=== PATIENT | female | born 1990 | race Caucasian/White ===

== ENCOUNTER 2016-09-13 19:48 | Inpatient (IN) | payer BC, OTHER ==
[~2016-09-13] VITALS: Ht 157.5 cm; Wt 54.4 kg
--- NOTE | 2016-09-13 20:45 | NUR ---
Pre-admission assessment Patient is a 26-year old, female, seen at intake, AAOx4, no SOB and no anxiety noted at this time. Discussed with patient admission policies of the unit. Patient is coherent and able to respond to questions appropriately. Patient reported that she is originally from [place] but has recently moved to [place], [place] last 06/2016. Pt is ambulatory with steady gait. Pt reports no known allergies and no history of seizure. Patient reports using these substance daily: Heroin 1 gm IV daily, on and off, for 1 year, last use was 09/13/2016 at 0900 and Marijuana 1 ball daily on average via smoking daily for 5 years. Last use was 09/13/2016 at 1300. Pt mentioned and she takes no home meds, except for Melatonin intermittently. Vital signs taken and as follows: ZN=109/85, P=93, O2 sat on RA=98%, RR=20, T=98.4. Pt verbalized instructions and teachings regarding disposal of narcotic and other controlled home meds, unit protocols such as taking of vital signs Q4H and handling and disposal of contraband.
[2016-09-13] MEDS ORDERED: ACETAMINOPHEN 325 MG TABLET PO PRN (21:00)
[2016-09-13] MEDS ORDERED: MAGNESIUM HYDROXIDE 30 ML LIQUID UDC PO PRN (21:00)
[2016-09-13] MEDS ORDERED: MAG HYDROX/AL HYDROX/SIMETH 30 ML LIQUID UDC PO PRN (21:00)
[2016-09-13] MEDS ORDERED: ONDANSETRON 4 MG/2 ML VIAL IM PRN (21:00)
[2016-09-13] MEDS ORDERED: HYDROXYZINE PAMOATE 25 MG CAPSULE PO PRN (21:00)
[2016-09-13] MEDS ORDERED: ONDANSETRON ODT 4 MG TAB.RAPDIS SL PRN (21:00)
[2016-09-13] MEDS ORDERED: MIRALAX 17 GM POWD.PACK PO PRN (21:00)
[2016-09-13] MEDS ORDERED: METHOCARBAMOL 750 MG TABLET PO PRN (21:00)
[2016-09-13] MEDS ORDERED: LOPERAMIDE HCL 2 MG CAPSULE PO PRN ×2 (21:00)
[2016-09-13] MEDS ORDERED: BUPRENORPHINE HCL 2 MG TAB.SUBL SL PRN (21:00)
[2016-09-13 21:37] LABS: BASOPHILS # (AUTO) 0.2 K/uL (0.0-8.0); BASOPHILS % (AUTO) 2.5 % (0.0-2.0); EOSINOPHILS # (AUTO) 0.1 K/uL (0.0-0.7); EOSINOPHILS % (AUTO) 0.8 % (0.0-7.0); HEMATOCRIT 41.5 % (37-47); HEMOGLOBIN 14.2 G/DL (12.0-16.0); LYMPHOCYTES # (AUTO) 1.8 K/UL (0.8-4.8); LYMPHOCYTES % (AUTO) 24.7 % (20.5-51.5); MEAN CORPUSCULAR HEMOGLOBIN 29.5 UUG (27.0-31.0); MEAN CORPUSCULAR HGB CONC 34 g/dL (32.0-37.0); MEAN CORPUSCULAR VOLUME 86.1 FL (81.0-99.0); MONOCYTES # (AUTO) 0.4 K/UL (0.1-1.30); MONOCYTES % (AUTO) 5.9 % (0.0-11.0); NEUTROPHILS # (AUTO) 4.6 K/UL (1.8-8.9); NEUTROPHILS % (AUTO) 66.1 % (38.5-71.5); PLATELET COUNT (AUTO) 250 K/UL (150-450); RED BLOOD CELL COUNT(AUTO) 4.82 MIL/UL (4.2-5.4); WHITE BLOOD COUNT (AUTO) 7.1 K/UL (4.0-11.2)
[2016-09-13 21:44] LABS: ETHANOL < 3 MG/DL (0-0)
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
[2016-09-13 21:48] LABS: ALANINE AMINOTRANSFERASE 125 U/L (14-59); ALKALINE PHOSPHATASE 74 U/L (50-136); AMYLASE 68 U/L (25-115); ASPARTATE AMINOTRANSFERASE 74 U/L (15-37); BILIRUBIN,TOTAL 0.3 mg/dL (0.2-1.0); CARBON DIOXIDE 27 mmol/L (21-32); CHLORIDE 103 mmol/L (98-107); CREATININE 0.7 mg/dL (0.6-1.3); GLUCOSE 113 mg/dL (74-106); LIPASE 92 U/L (73-393); POTASSIUM 4.3 mmol/L (3.5-5.1); TOTAL PROTEIN, SERUM 8.3 g/dL (6.4-8.2); UREA NITROGEN, BLOOD 8 mg/dL (7-18)
[2016-09-13 21:57] LABS: THYROID STIMULATING HORMONE 0.833 mIU/mL (0.358-3.740)
[2016-09-13 22:17] LABS: *URINE HCG, QUAL NEGATIVE (NEGATIVE)
[2016-09-13 22:20] LABS: *AMPHETAMINE, URINE NEGATIVE (NEGATIVE); *BARBITURATE, URINE NEGATIVE (NEGATIVE); *CANNABINOID, URINE POSITIVE (NEGATIVE); *COCCAINE, URINE NEGATIVE (NEGATIVE); *OPIATE, URINE POSITIVE (NEGATIVE); *PHENCYCLIDINE SCREEN,URINE NEGATIVE (NEGATIVE)
[2016-09-14] VITALS: BP 115/77
--- NOTE | 2016-09-14 04:00 | NUR ---
VITALS REFUSED/ COW DEFERRED Pt refused to have vitals taken at this time. Pt was encouraged x 3 with risks and benefits explained, but the pt still refused. COW assessment deferred until pt is awake. All safety measures in place. Will continue to monitor. Addendum: 09/14/16 at 0630 by RAJANI ROA LVN Amended: Links added.
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
[2016-09-14] MEDS: MULTIVITAMINS,THERAPEUTIC TABLET PO SCH (07:55)
[2016-09-14 08:20] VITALS: BP 108/80
[2016-09-14] MEDS ORDERED: TUBERCULIN,PURIF.PROT.DERIV. 5 TU/0.1 ML TEST ID ONE (09:00)
--- NOTE | 2016-09-14 11:13 | NUR ---
PRN SUBUTEX patient complaining of increased body pains (generalized), runny nose, chills, sweating, and anxiety. COWS score 14. gave 4mg of SUBUTEX. Will continue to monitor and reassess.
[2016-09-14] MEDS: DICYCLOMINE HCL 20 MG TABLET PO PRN (11:24)
[2016-09-14] MEDS: IBUPROFEN 400 MG TABLET PO PRN (11:24)
--- NOTE | 2016-09-14 11:26 | NUR ---
PRN MEDICATION Patient complaining of stomach cramps and body aches. Bentyl and motrin was given. Will continue to monitor and reassess patient.
--- NOTE | 2016-09-14 11:56 | NUR ---
PRN REASSESSMENT patient expresses she feels much better after taking SUBUTEX, Motrin and Bentyl. Will continue to monitor patient. All safety measures in place.
[2016-09-14 12:00] VITALS: BP 137/69
[2016-09-14] MEDS: GABAPENTIN 300 MG CAPSULE PO SCH (14:35)
[2016-09-14] MEDS: BUPRENORPHINE HCL 2 MG TAB.SUBL SL SCH ×2 (14:35→21:31)
--- NOTE | 2016-09-14 15:15 | NUR ---
This fiction writer encouraged client to attend groups. Client said that she would once she felt a little better.
[2016-09-14 16:00] VITALS: BP 108/71
[2016-09-14] MEDS: CLONIDINE HCL 0.1 MG TABLET PO PRN (17:16)
--- NOTE | 2016-09-14 17:16 | NUR ---
PRN CLONIDINE Patient complaining of increased anxiety. Clonidine given. Will continue to monitor an d reassess.
--- NOTE | 2016-09-14 17:45 | NUR ---
CLONIDINE REASSESSMENT Patient is still complaining of anxiety. Going to give Vistaril are anxiety. Will continue to monitor. and reassess.
--- NOTE | 2016-09-14 18:33 | NUR ---
PRN VISTARIL GIVEN Patient continues to complain of increased anxiety after Clonidine was given. Vistaril given to decrease anxiety. Will continue to monitor and reassess.
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
--- NOTE | 2016-09-14 19:08 | NUR ---
VISTARIL REASSESSMENT patient expresses less anxiety after Vistaril given. WIll continue to monitor and assess patient.
[2016-09-14 20:00] VITALS: BP 105/89
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
[2016-09-14] MEDS ORDERED: GABAPENTIN 300 MG CAPSULE PO SCH (21:00)
[2016-09-14] MEDS ORDERED: LORAZEPAM 1 MG TABLET PO ONE (21:45)
[2016-09-14] MEDS ORDERED: LORAZEPAM 1 MG TABLET ONE (21:53)
[2016-09-15] VITALS: BP 100/62
--- NOTE | 2016-09-15 04:00 | NUR ---
VITALS REFUSED/ COWS DEFERRED Pt refused to have vitals taken at this time. Pt was encouraged x 3 with risks and benefits explained but the pt still declined. COW assessment deferred until pt is awake. All safety measures in place. Will continue to monitor. Addendum: 09/15/16 at 0522 by RAJANI ROA LVN Amended: Links added.
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
--- NOTE | 2016-09-15 07:32 | NUR ---
START OF SHIFT NOTE Patient is alert and orientated X 4. Laying in bed this morning resting with respirations even and unlabored. Patient slept 8 hours last night according to night nurse with the last COWS 6. PRN Ativan was given for anxiety with effectiveness. Patient is on a Subutex tahira. Will encourage to participate in activities today. All safety measures in place. Will continue to monitor.
[2016-09-15 08:04] LABS: BILIRUBIN,DIRECT 0.1 mg/dL (0.0-0.2); BILIRUBIN,TOTAL 0.2 mg/dL (0.2-1.0); TOTAL PROTEIN, SERUM 7.5 g/dL (6.4-8.2)
[2016-09-15 08:11] VITALS: BP 95/95
[2016-09-15] MEDS: GABAPENTIN 300 MG CAPSULE PO SCH ×2 (08:35→15:14)
[2016-09-15] MEDS: MULTIVITAMINS,THERAPEUTIC TABLET PO SCH (08:35)
[2016-09-15] MEDS ORDERED: BUPRENORPHINE HCL 2 MG TAB.SUBL SL SCH (09:00)
[2016-09-15 12:09] LABS: HEPATITIS B SURFACE AG Negative (Negative)
[2016-09-15 12:37] VITALS: BP 108/75
[2016-09-15] MEDS: HYDROXYZINE PAMOATE 25 MG CAPSULE PO SCH ×3 (13:36→20:23)
[2016-09-15] MEDS: BUPRENORPHINE HCL 2 MG TAB.SUBL SL SCH ×2 (15:14→20:23)
[2016-09-15 17:27] VITALS: BP 106/75
--- NOTE | 2016-09-15 18:57 | NUR ---
END OF SHIFT NOTE Patient is alert and orientated X4. Vital sign remain stable throughout the day. No PRNS were given today. Last COWS 9. Patient is on a 4 day Subutex taper and tolerating well. Patient participated in group and activities today and has been compliant with MDs orders. All safety measures in place per hospital policy. All needs have been met. Will continue to monitor patient until endorsed to oncoming nurse.
--- NOTE | 2016-09-15 19:45 | NUR ---
Start of Shift Note: Report received from day shift nurse. Pt is a 26 Y/O female admitted on 09/13/16 for medically-supervised withdrawal from opiates. Pt reports using IV heroin 1gm/day for 6 months; pt also reports daily use of marijuana. Pt is on a 4-day Subutex taper. Pt received with last COWS=9, and no PRN medications were given during day shift. Pt reports NKDA/NKFA. Pt is a full code. Pt is on a regular diet. PMHx: anxiety, depression, insomnia, hx of ETOH dependence and chlamydia. Pt received in room and reports anxiety, diaphoresis, chills, generalized pain, and stomach cramps. Bed is in low position and locked, side rails up x2, call light is within reach. Will continue to monitor.
[2016-09-15 20:00] VITALS: BP 98/70
[2016-09-15] MEDS: DICYCLOMINE HCL 20 MG TABLET PO PRN (20:24)
[2016-09-15] MEDS: CLONIDINE HCL 0.1 MG TABLET PO PRN (20:24)
--- NOTE | 2016-09-15 20:24 | NUR ---
PRN's Bentyl, Clonidine, and Robaxin: Patient complains of stomach cramps. Administered PRN Bentyl as ordered. Patient complains of diaphoresis and anxiety. Administered PRN Clonidine as ordered. Patient complains of myalgia in lower back. Administered PRN Robaxin as ordered. Will continue to monitor.
[2016-09-15] MEDS ORDERED: GABAPENTIN 300 MG CAPSULE PO SCH (21:00)
--- NOTE | 2016-09-15 21:25 | NUR ---
PRN Reassessment: Patient is in bed with eyes closed. Respirations are even and unlabored. No s/s of acute distress noted. PRN's clonidine, Robaxin, and Bentyl effective AEB pt's ability to rest. Will continue to monitor.
--- NOTE | 2016-09-16 | NUR ---
Vitals Refused, COWS Deferred: Patient refuses 00:00 V/S. COWS is deferred for sleep. All safety precautions are in place. Will continue to monitor. Addendum: 09/16/16 at 0138 by YOEL NAPOLES RN Amended: Links added.
--- NOTE | 2016-09-16 04:00 | NUR ---
V/S Refused, COWS Deferred: Patient refuses 04:00 vital signs. Patient educated on risks/benefits and still refused for sleep. COWS is deferred for sleep. All safety precautions are in place. Will continue to monitor. Addendum: 09/16/16 at 0433 by YOEL NAPOLES RN Amended: Links added.
--- NOTE | 2016-09-16 06:58 | NUR ---
End of Shift Note: Pt is a 26 Y/O female admitted to [facility] on 09/13/16 for medically-supervised withdrawal from opiates. Pt reported a PMHx of anxiety, depression, insomnia, hx of ETOH dependence and chlamydia. Pt reports NKDA/NKFA, is a full code, and is on a regular diet. Pt reported using IV heroin 1gm/day for 6 months and was placed on a 4-day Subutex taper. Scheduled medication regime managed s/s of withdrawal this shift, in addition to PRN Bentyl for stomach cramps, PRN clonidine for anxiety and diaphoresis, and PRN Robaxin for myalgia. Last COWS=8 at 20:00.V/S stable throughout shift with tachycardia. Total fluid intake this shift: 1091 ml; output: urine x 3 and BM x 0. Pt is currently in bed, and slept 9 hours this shift. All needs have been attended and met. Pt endorsed to day shift nurse.
--- NOTE | 2016-09-16 07:06 | NUR ---
Start of Shift Endorsement received from nightshift. Pt is a 26 y/o female admitted for Heroin dependence. Pt has been placed on a 4 day Subutex taper. Pt is tolerating the taper, moderately withdrawing AEB COWS 8 at 0400. Pt received PRN Clonidine, Robaxin and Bentyl. Pt reports sleeping 9 hours and feels rested. VS WNL. Full Code. PT is alert and oriented x4. Pt is in STABLE condition at this time. Remains compliant with medication and diet regimen. All needs have been met, All safety measures in place per hospital policy. Bed in lowest position, side rails up x2, call-light within reach. Will continue to monitor
[2016-09-16 08:00] VITALS: BP 122/77
[2016-09-16 08:29] LABS: BILIRUBIN,DIRECT 0.1 mg/dL (0.0-0.2); BILIRUBIN,TOTAL 0.2 mg/dL (0.2-1.0); TOTAL PROTEIN, SERUM 6.9 g/dL (6.4-8.2)
[2016-09-16] MEDS: HYDROXYZINE PAMOATE 25 MG CAPSULE PO SCH ×4 (09:02→21:00)
[2016-09-16] MEDS: MULTIVITAMINS,THERAPEUTIC TABLET PO SCH (09:02)
[2016-09-16] MEDS: BUPRENORPHINE HCL 2 MG TAB.SUBL SL SCH ×3 (09:03→21:00)
[2016-09-16] MEDS: GABAPENTIN 300 MG CAPSULE PO SCH ×3 (09:03→21:00)
[2016-09-16 12:00] VITALS: BP 115/77
[2016-09-16] MEDS: IBUPROFEN 400 MG TABLET PO PRN (15:52)
[2016-09-16] MEDS: CLONIDINE HCL 0.1 MG TABLET PO PRN (15:52)
--- NOTE | 2016-09-16 15:52 | NUR ---
PRN ADMINISTRATION: PT WITH COMPLAINTS OF ANXIETY AND FEELS RESTLESS AND MILD PAIN ALL OVER. PAIN SCALE 6/10 FOR GENERALIZED BODY.
[2016-09-16 16:00] VITALS: BP 120/82
[2016-09-16] MEDS: QUETIAPINE FUMARATE 25 MG TABLET PO PRN ×2 (16:57→21:00)
--- NOTE | 2016-09-16 16:58 | NUR ---
PRN Pt in room on bed appears irritable and anxious, observed not able to sit still and continuously tapping foot. Pt states she feels very agitated. Seroquel po prn per MD order given and tolerated well.
--- NOTE | 2016-09-16 18:42 | NUR ---
End of Shift Endorsement given to nightshift. Pt is a 26 y/o female admitted for Heroin dependence. Pt has been placed on a 4 day Subutex taper. Pt is tolerating the taper, moderately withdrawing AEB COWS 8 at 1600. Pt received PRN Clonidine, Motrin and Seroquel. Pt reports restlessness and increased anxiety. Pt participated in groups and activities. Encouraged pt to drink more fluids. Educated pt on diet and medication regimen. Intake: 2540ml, Void x2. BM X0. VS WNL. Full Code. PT is alert and oriented x4. Pt is in STABLE condition at this time. Remains compliant with medication and diet regimen. All needs have been met, All safety measures in place per hospital policy. Bed in lowest position, side rails up x2, call-light within reach. Will continue to monitor
--- NOTE | 2016-09-16 19:55 | NUR ---
Start of Shift Note: Report received from day shift nurse. Pt is a 26 yo female admitted on 09/13/16 for medically-supervised withdrawal from opiates. Pt reports using IV heroin 1gm/day and marijuana 0.5gm/day for 6 months. Pt continues on a 4-day Subutex taper. Pt received with last COWS=8, and PRN's clonidine, Motrin, and Seroquel were given during day shift. Pt is a full code. Pt reports NKDA/NKFA. Pt is on a regular diet. PMHx: depression, anxiety, insomnia, hx of ETOH dependence and chlamydia. Pt received in room and reports anxiety, back pain, and diaphoresis. Bed is in low position and locked, side rails up x2, call light is within reach. Will continue to monitor.
[2016-09-16 20:00] VITALS: BP 100/72
[2016-09-16] MEDS: diphenhydrAMINE 50 MG CAPSULE PO PRN (21:00)
--- NOTE | 2016-09-16 21:00 | NUR ---
PRN Seroquel and PRN Benadryl: Patient complains of irritability and agitation. Administered PRN Seroquel as ordered. Patient complains of inability to sleep. Administered PRN Benadryl as ordered. Will continue to monitor.
--- NOTE | 2016-09-16 22:00 | NUR ---
PRN Reassessment: Patient is in bed with eyes closed. Respirations are even and unlabored. No s/s of acute distress noted. PRN's Seroquel and Benadryl effective AEB patient's ability to rest. Will continue to monitor.
[2016-09-17] VITALS: BP 102/64
--- NOTE | 2016-09-17 | NUR ---
COWS Deferred: COWS Q4HWA is deferred for sleep. V/S stable and WNL. All safety precautions are in place. Will continue to monitor. Addendum: 09/17/16 at 0052 by YOEL NAPOLES RN Amended: Links added.
--- NOTE | 2016-09-17 04:00 | NUR ---
V/S Refused, COWS Deferred: Patient refuses ordered 04:00 vital signs for sleep. COWS is deferred until patient is awake. All safety precautions are in place. Will continue to monitor. Addendum: 09/17/16 at 0414 by YOEL NAPOLES RN Amended: Links added.
--- NOTE | 2016-09-17 06:52 | NUR ---
End of Shift Note: Pt is a 26 yo female admitted to [facility] on 09/13/16 for medically-supervised withdrawal from opiates. Pt reports a PMHx of depression, anxiety, insomnia, hx of ETOH dependence and chlamydia. Pt is a full code. Pt reports NKDA/NKFA. Pt is on a regular diet. Pt reported using IV heroin 1gm/day and marijuana 0.5gm/day for 6 months. Pt continues on a 4-day Subutex taper. Scheduled medication regime managed s/s of withdrawal this shift, in addition to PRN Seroquel for agitation. Last COWS=6 at 20:00. V/S stable throughout shift. Total fluid intake this shift: 1605 ml; output: urine x 2 and BM x 0. PRN Benadryl was given for insomnia, which was effective and slept 8 hours this shift. Pt is currently in bed, all needs have been attended and met. Pt endorsed to day shift nurse.
--- NOTE | 2016-09-17 07:10 | NUR ---
Start of Shift Endorsement received from nightshift. Pt is a 26 y/o female admitted for Heroin dependence. Pt has been placed on a 4 day Subutex taper. Pt is tolerating the taper, moderately withdrawing AEB COWS 6 at 0000. Pt received PRN Seroquel and Benadryl. Pt reports sleeping 8 hours. Pt has been schedule to complete her taper today, 09/17/16. VS WNL. Full Code. PT is alert and oriented x4. Pt is in STABLE condition at this time. Remains compliant with medication and diet regimen. All needs have been met, All safety measures in place per hospital policy. Bed in lowest position, side rails up x2, call-light within reach. Will continue to monitor
[2016-09-17 08:00] VITALS: BP 100/59
[2016-09-17 08:16] LABS: BILIRUBIN,DIRECT 0.1 mg/dL (0.0-0.2); BILIRUBIN,TOTAL 0.3 mg/dL (0.2-1.0); TOTAL PROTEIN, SERUM 7.4 g/dL (6.4-8.2)
[2016-09-17] MEDS: GABAPENTIN 300 MG CAPSULE PO SCH ×3 (08:34→21:08)
[2016-09-17] MEDS: MULTIVITAMINS,THERAPEUTIC TABLET PO SCH (08:34)
[2016-09-17] MEDS: HYDROXYZINE PAMOATE 25 MG CAPSULE PO SCH ×4 (08:34→21:08)
[2016-09-17] MEDS: QUETIAPINE FUMARATE 25 MG TABLET PO PRN ×3 (08:34→22:56)
--- NOTE | 2016-09-17 08:34 | NUR ---
PRN Medication Administered PRN Seroquel 25mg for moderate to severe anxiety per MD orders.
[2016-09-17] MEDS ORDERED: BUPRENORPHINE HCL 2 MG TAB.SUBL SL SCH (09:00)
--- NOTE | 2016-09-17 09:00 | NUR ---
Medication re-assessment Pt reports decrease in anxiety, rated 3/10 from 8/10 prior to the medication. Medication was effective.
--- NOTE | 2016-09-17 10:35 | NUR ---
PRN Medication Administered PRN Miralax for constipation reported by pt.
[2016-09-17] MEDS ORDERED: QUET25TA PO (11:49)
[2016-09-17] MEDS ORDERED: DICY20TA28 PO (11:49)
[2016-09-17] MEDS ORDERED: CLON0.1T14 PO (11:49)
[2016-09-17] MEDS ORDERED: HYDR-3895 PO (11:49)
[2016-09-17] MEDS ORDERED: GABA-534 PO (11:49)
[2016-09-17] MEDS ORDERED: METH-406 PO (11:49)
[2016-09-17 12:00] VITALS: BP 109/66
--- NOTE | 2016-09-17 13:39 | NUR ---
Therapist prompted client about group times. Client stated she will attend all groups.
--- NOTE | 2016-09-17 15:22 | NUR ---
PRN Medication Pt reports anxiety of 09/23. Administered Seroquel 25mg.
[2016-09-17 15:34] LABS: *AMPHETAMINE, URINE NEGATIVE (NEGATIVE); *BARBITURATE, URINE NEGATIVE (NEGATIVE); *CANNABINOID, URINE POSITIVE (NEGATIVE); *COCCAINE, URINE NEGATIVE (NEGATIVE); *OPIATE, URINE NEGATIVE (NEGATIVE); *PHENCYCLIDINE SCREEN,URINE NEGATIVE (NEGATIVE)
--- NOTE | 2016-09-17 15:50 | NUR ---
Medication re-assessment PT reports anxiety of 4/10 at this time. Medication was partially effective.
[2016-09-17 16:00] VITALS: BP 120/73
--- NOTE | 2016-09-17 17:23 | NUR ---
Endorsed PT to Fernando.
--- NOTE | 2016-09-17 18:13 | NUR ---
End of shift note; Patient is AOX4. Patient is a 26 year old female admitted on 09/13/16 for Opiate withdrawals. Patient was placed on 4 day Subutex taper, completed taper without any adverse reactions. Per previous nurse,patient remained compliant with treatment and medication regime. Medications were effective in reducing withdrawal symptoms. Patient is on fall and seizure precautions. Bed in lowest position, call light within reach. Patient is medically cleared for discharge tomorrow. Met all needs.
[2016-09-17 20:00] VITALS: BP 116/74
--- NOTE | 2016-09-17 20:00 | NUR ---
Start of Shift Note: Report received from day shift nurse. Pt is a 26 y/o female admitted on 09/13/16 for medically-supervised withdrawal from opiates. Pt reports using 1gm IV heroin and 0.5gm marijuana daily for 6 months. Pt completed a 4-day Subutex taper and is to discharge tomorrow. Pt received with last COWS=5, and PRN's Seroquel and Miralax were given during day shift. Pt is a full code, reports NKDA/NKFA, and is on a regular diet. PMHx: depression, anxiety, insomnia, hx of ETOH dependence. Pt received in room and reports mild generalized pain and anxiety. Bed is in low position and locked, side rails up x2, call light is within reach. Will continue to monitor.
[2016-09-17] MEDS: diphenhydrAMINE 50 MG CAPSULE PO PRN (21:07)
[2016-09-17] MEDS: CLONIDINE HCL 0.1 MG TABLET PO PRN (21:08)
--- NOTE | 2016-09-17 21:08 | NUR ---
PRN's Milk of Mag, Benadryl, and Clonidine: Patient complains of constipation and reports no BM in several days. Administered PRN Milk of Mag as ordered. Patient complains of inability to sleep. Administered PRN Benadryl as ordered. Patient complains of anxiety. Administered PRN Clonidine as ordered. Will continue to monitor.
--- NOTE | 2016-09-17 22:10 | NUR ---
PRN Reassessment: Patient reports that she is still anxious and unable to sleep. PRN Benadryl and PRN Clonidine not effective. Will f/u with additional PRN medication.
--- NOTE | 2016-09-17 22:50 | NUR ---
PRN Seroquel: Patient reports agitation and requests PRN Seroquel. Administered as ordered.
--- NOTE | 2016-09-17 23:50 | NUR ---
PRN Reassessment: Patient is in bed with eyes closed. Respirations are even and unlabored. No s/s of acute distress noted. PRN Seroquel effective. Will continue to monitor.
--- NOTE | 2016-09-18 | NUR ---
V/S Refused, COWS Deferred: Pt refuses 00:00 vital signs for sleep. COWS is deferred until patient is awake. All safety precautions are in place. Will continue to monitor. Addendum: 09/18/16 at 0305 by YOEL NAPOLES RN Amended: Links added.
--- NOTE | 2016-09-18 04:00 | NUR ---
Vitals Refused, COWS/CIWA Deferred: Patient refuses 04:00 V/S. COWS and CIWA are deferred for sleep. All safety precautions are in place. Will continue to monitor. Addendum: 09/18/16 at 0514 by YOEL NAPOLES RN Amended: Links added.
--- NOTE | 2016-09-18 04:15 | NUR ---
Behavioral Note: Throughout shift, patient has repeatedly requested IV Benadryl for various complaints - nausea, vomiting, vaginal itching, insomnia - and refuses alternate medications that are more appropriate (Zofran, PO Benadryl, Diflucan). Patient has not provided evidence of episodes of vomiting, states that she accidentally flushed stomach contents after specifically being told not to. Patient educated on medication safety and abuse potential of medications that are sedating - especially while abusing opiates and benzodiazepines. Addendum: 09/18/16 at 0448 by YOEL NAPOLES RN ERROR!!!! Wrong patient
--- NOTE | 2016-09-18 06:58 | NUR ---
End of Shift Note: Pt is a 26 y/o female admitted to [facility] on 09/13/16 for medically-supervised withdrawal from opiates. Pt reported PMHx of depression, anxiety, insomnia, hx of ETOH dependence. Pt is a full code, reports NKDA/NKFA, and is on a regular diet. Pt reported using 1gm IV heroin daily for 6 months. Pt completed a 4-day Subutex taper and is to discharge today. Scheduled medication regime managed s/s of withdrawal this shift, in addition to PRN Seroquel for agitation and PRN clonidine for anxiety. Last COWS=2 at 20:00. V/S stable throughout shift. Total fluid intake this shift: 973 ml; output: urine x 2 and BM x 0 (PRN Milk of Mag was given for constipation, not effective). PRN Benadryl was given for insomnia, which was mildly effective and slept 5 hours this shift. Pt is currently in bed, all needs have been attended and met. Pt endorsed to day shift nurse.
--- NOTE | 2016-09-18 07:28 | NUR ---
START OF SHIFT NOTE: Received report from [employer] shift manager nurse. Pt is a 26 y/o female admitted on 09/13/16 for medically-supervised withdrawal from opiates. To be discharged this AM. Pt is alert and oriente X4. Color good, skin warm and dry. Respirations even and unlabored. resting in bed. Safety precautions observed. Call light within reach.
[2016-09-18] MEDS: HYDROXYZINE PAMOATE 25 MG CAPSULE PO SCH (08:19)
[2016-09-18] MEDS: MULTIVITAMINS,THERAPEUTIC TABLET PO SCH (08:19)
[2016-09-18] MEDS: GABAPENTIN 300 MG CAPSULE PO SCH (08:19)
[2016-09-18] MEDS: QUETIAPINE FUMARATE 25 MG TABLET PO PRN (08:21)
--- NOTE | 2016-09-18 08:29 | NUR ---
[facility] Discharge papers signed. No home meds. Seroquel 25mg po prn given
[2016-09-18 08:33] VITALS: BP 98/64
--- NOTE | 2016-09-18 09:25 | NUR ---
Pt discharged in stable condition with all valuables and belongings. No home meds. Denies SI/HI. To Able to Change via [employer] private car.
== END 2016-09-18 09:25 | disposition other institution (70) | DRG 895 ==
LOC: SRC 20:07
PROVIDERS: ADMIT Internal Medicine; ATTEND Internal Medicine
PROC: HZ2ZZZZ Detoxification Services for Substance Abuse Treatment (ICD-10-PCS; principal; 2016-09-13)
PROC: HZ41ZZZ Group Counseling for Substance Abuse Treatment, Behavioral (ICD-10-PCS; 2016-09-14)
PROC: HZ31ZZZ Individual Counseling for Substance Abuse Treatment, Behavioral (ICD-10-PCS; 2016-09-16)
DX: F11.23 Opioid dependence with withdrawal (principal); F41.9 Anxiety disorder, unspecified; F12.10 Cannabis abuse, uncomplicated; F17.210 Nicotine dependence, cigarettes, uncomplicated; B19.20 Unspecified viral hepatitis C without hepatic coma; F32.9 Major depressive disorder, single episode, unspecified; R74.0 Nonspecific elevation of levels of transaminase and lactic acid dehydrogenase [LDH]
CPT/HCPCS: 36415; 70030-TC; 80307; 80349; 80361; 83690; 83735; 84443; 84703; 85025; 86592; 86705; 86803; 87340; 87806; A4663; G0480; Q0163